=== PATIENT | male | born 1960 | race African-American/Black ===

== ENCOUNTER 2018-10-17 19:50 | Emergency (ER) | payer SELFPAY ==
[~2018-10-17] VITALS: Ht 172.7 cm; Wt 65.0 kg
[2018-10-17] MEDS ORDERED: FLUORESCEIN SODIUM 1MG/STRIP OP ONE (20:30)
[2018-10-17] MEDS ORDERED: TETRACAINE 0.5% OPHTH DROPS 4ML OP ONE (20:30)
[2018-10-18 00:58] VITALS: BP 101/65
== END 2018-10-18 01:01 ==
LOC: ER 19:50
DX: H11.32 Conjunctival hemorrhage, left eye (principal); Z86.73 Personal history of transient ischemic attack (TIA), and cerebral infarction without residual deficits; F10.21 Alcohol dependence, in remission; Z91.013 Allergy to seafood
CPT/HCPCS: 99283